=== PATIENT | male | born 1965 | race Two or more races ===

== ENCOUNTER 2017-05-15 20:02 | Inpatient (IN) | payer MEDICARE, MEDICAID ==
[~2017-05-15] VITALS: Ht 182.9 cm; Wt 76.7 kg
[2017-05-15] MEDS: VANCOMYCIN 1 G PREMIX 200 ML IV ONE (00:55)
[2017-05-15] MEDS ORDERED: ONDANSETRON HCL 4MG/2ML VIAL IV STA (22:49)
[2017-05-15] MEDS ORDERED: MORPHINE SULFATE 4 MG/ML CPJ (NOT FOR IM USE) IV STA (22:49)
[2017-05-15] MEDS ORDERED: SODIUM CHLORIDE 0.9% 1,000 ML IV ONE (22:49)
[2017-05-15] MEDS ORDERED: CEFTRIAXONE 2 G PREMIX 50 ML IV ONE (23:00)
[2017-05-15] MEDS ORDERED: DEXAMETHASONE 10 MG in SODIUM CHLORIDE 0.9% 50 ML IV NR (23:00)
[2017-05-15 23:43] LABS: BASOPHILS % 0.1 % (0.0-2.0); HEMATOCRIT. 45.7 % (42.0-52.0); HEMOGLOBIN. 14.5 g/dL (14.0-18.0); LYMPHOCYTES % 13.4 % (20.0-50.0); MEAN CORPUSCULAR HEMOGLOBIN 27.1 pg (28.0-32.0); MEAN CORPUSCULAR VOLUME 85.5 fL (80.0-94.0); MEAN PLATELET VOLUME 8.8 fl (7.4-10.4); MONOCYTES % 3.7 % (2.0-8.0); NEUTROPHILS % 82.8 % (40.0-76.0); PLATELET 236 x1000/uL (130-400); RED BLOOD CELL COUNT 5.34 mill/uL (4.7-6.1); RED CELL DISTRIBUTION WIDTH 19.6 % (11.6-14.6)
[2017-05-15] MEDS ORDERED: DIPHENHYDRAMINE 50MG/ML VIAL IV ONE (23:45)
[2017-05-15 23:48] LABS: CHLORIDE 109 mEq/L (98-107)
[2017-05-15 23:49] LABS: INR 1.1; PROTHROMBIN TIME 11.1 sec (9.4-11.6)
[2017-05-15 23:59] LABS: CARBON DIOXIDE 23 mEq/L (21-32)
[2017-05-16 00:12] LABS: CLARITY URINE CLEAR (CLEAR); COLOR URINE YELLOW (YELLOW); GLUCOSE URINE NEGATIVE (NEGATIVE); KETONES URINE NEGATIVE (NEGATIVE); LEUKOCYTE ESTERASE URINE NEGATIVE (NEGATIVE); NITRITE URINE NEGATIVE (NEGATIVE); OCCULT BLOOD URINE NEGATIVE (NEGATIVE); PROTEIN URINE NEGATIVE (NEGATIVE); SPECIFIC GRAVITY URINE 1.022 (1.005-1.030); UROBILINOGEN URINE 0.2 E.U./dL (0.2-1.0)
[2017-05-16] MEDS: VANCOMYCIN 1 G PREMIX 200 ML IV ONE (00:55)
[2017-05-16] MEDS ORDERED: SODIUM CHLORIDE 0.9% 1,000 ML IV SCH (01:13)
[2017-05-16] MEDS ORDERED: MORPHINE SULFATE 4 MG/ML CPJ (NOT FOR IM USE) IV ONE (02:45)
[2017-05-16] MEDS ORDERED: DIPHENHYDRAMINE 50MG/ML VIAL IV ONE (02:45)
[2017-05-16] MEDS ORDERED: NIFEDIPINE XL 30MG TAB PO ONE (04:15)
[2017-05-16 09:00] VITALS: BP 160/95
[2017-05-16 10:02] VITALS: BP 160/95
[2017-05-16] MEDS ORDERED: EMTR1TAB12 PO (10:09)
[2017-05-16] MEDS ORDERED: LORA2TAB2 PO (10:09)
[2017-05-16] MEDS ORDERED: DARU1TAB PO (10:09)
[2017-05-16] MEDS ORDERED: CLON0.1T PO (10:09)
[2017-05-16] MEDS ORDERED: LOV40 SQ (10:09)
[2017-05-16 12:00] VITALS: BP 136/88
[2017-05-16] MEDS ORDERED: ACETAMINOPHEN 325MG TABLET PO PRN (12:30)
[2017-05-16] MEDS ORDERED: CEFTRIAXONE 2 G PREMIX 50 ML IV SCH (12:30)
[2017-05-16] MEDS ORDERED: ONDANSETRON HCL 4MG/2ML VIAL IV PRN (12:30)
[2017-05-16] MEDS: HYDROMORPHONE HCL/PF 2MG/ML CPJ IV PRN ×3 (13:25→21:38)
[2017-05-16] MEDS: CLONIDINE 0.1MG TABLET PO SCH ×2 (13:34→20:45)
[2017-05-16] MEDS: AMLODIPINE 10MG TABLET PO SCH (13:35)
[2017-05-16] MEDS: CEFTRIAXONE 2 G in DEXTROSE 5% WATER 50 ML IV SCH ×2 (14:29→23:29)
[2017-05-16] MEDS: DIPHENHYDRAMINE 50MG/ML VIAL IV PRN ×3 (14:29→23:27)
[2017-05-16] MEDS: ENOXAPARIN 100MG/ML SYR SUBCUT SCH (14:37)
[2017-05-16 16:00] VITALS: BP 118/70
[2017-05-16] MEDS: PREZCOBIX PO SCH (17:33)
[2017-05-16] MEDS: DESCOVY PO SCH (17:33)
[2017-05-16] MEDS ORDERED: VANCOMYCIN 500 MG PREMIX 100 ML IV SCH (18:00)
[2017-05-16] MEDS: AMPICILLIN 2,000 MG in SODIUM CHLORIDE 0.9% 100 ML IV SCH (18:34)
[2017-05-16 20:10] VITALS: BP 109/69
[2017-05-17] VITALS: BP 125/83
[2017-05-17] MEDS: AMPICILLIN 2,000 MG in SODIUM CHLORIDE 0.9% 100 ML IV SCH ×5 (00:55→23:02)
[2017-05-17] MEDS: HYDROMORPHONE HCL/PF 2MG/ML CPJ IV PRN ×6 (00:55→20:45)
[2017-05-17 04:41] VITALS: BP 132/88
[2017-05-17] MEDS: DIPHENHYDRAMINE 50MG/ML VIAL IV PRN ×4 (06:26→23:02)
[2017-05-17 08:10] VITALS: BP 123/82
[2017-05-17 08:30] LABS: HEMATOCRIT. 42.3 % (42.0-52.0); HEMOGLOBIN. 13.4 g/dL (14.0-18.0); LYMPHOCYTES % 10.1 % (20.0-50.0); MEAN CORPUSCULAR HEMOGLOBIN 27.1 pg (28.0-32.0); MEAN CORPUSCULAR VOLUME 85.3 fL (80.0-94.0); MEAN PLATELET VOLUME 9.1 fl (7.4-10.4); NEUTROPHILS % 84.9 % (40.0-76.0); PLATELET 207 x1000/uL (130-400); RED BLOOD CELL COUNT 4.95 mill/uL (4.7-6.1); RED CELL DISTRIBUTION WIDTH 19.3 % (11.6-14.6)
[2017-05-17 08:49] LABS: CARBON DIOXIDE 23 mEq/L (21-32); CHLORIDE 105 mEq/L (98-107); HDL CHOLESTEROL 50 mg/dL (40-59); LDL CHOLESTEROL 144 mg/dL (5-100)
[2017-05-17] MEDS: AMLODIPINE 10MG TABLET PO SCH (09:45)
[2017-05-17] MEDS: CEFTRIAXONE 2 G in DEXTROSE 5% WATER 50 ML IV SCH ×2 (09:45→20:26)
[2017-05-17] MEDS: CLONIDINE 0.1MG TABLET PO SCH ×2 (09:47→20:26)
[2017-05-17] MEDS: ASPIRIN 81MG EC TABLET PO SCH (09:47)
[2017-05-17] MEDS: DESCOVY PO SCH (09:48)
[2017-05-17] MEDS: PREZCOBIX PO SCH (09:49)
[2017-05-17] MEDS: ENOXAPARIN 100MG/ML SYR SUBCUT SCH (12:28)
[2017-05-17] MEDS: VANCOMYCIN 1 G PREMIX 200 ML IV SCH (14:03)
[2017-05-17 16:00] VITALS: BP 119/78
[2017-05-17 20:00] VITALS: BP 128/84
[2017-05-17] MEDS: ALPRAZOLAM 0.5 MG TABLET PO PRN (20:25)
[2017-05-17] MEDS: ACYCLOVIR INJ 750 MG in DEXT 5% WATER 100 ML IV SCH (20:45)
[2017-05-17 22:21] LABS: PLATELET ESTIMATE NORMAL
[2017-05-18 00:23] VITALS: BP 113/71
[2017-05-18] MEDS: HYDROMORPHONE HCL/PF 2MG/ML CPJ IV PRN ×7 (01:04→21:18)
[2017-05-18 04:00] VITALS: BP 133/86
[2017-05-18] MEDS: ACYCLOVIR INJ 750 MG in DEXT 5% WATER 100 ML IV SCH ×3 (04:35→22:02)
[2017-05-18] MEDS: AMPICILLIN 2,000 MG in SODIUM CHLORIDE 0.9% 100 ML IV SCH ×3 (06:30→18:20)
[2017-05-18] MEDS: DIPHENHYDRAMINE 50MG/ML VIAL IV PRN ×3 (06:34→19:04)
[2017-05-18 08:25] VITALS: BP 108/68
[2017-05-18 08:35] LABS: HEMATOCRIT. 40.2 % (42.0-52.0); HEMOGLOBIN. 12.8 g/dL (14.0-18.0); LYMPHOCYTES % 17.1 % (20.0-50.0); MEAN CORPUSCULAR VOLUME 84.8 fL (80.0-94.0); MONOCYTES % 10.9 % (2.0-8.0); PLATELET 185 x1000/uL (130-400); RED BLOOD CELL COUNT 4.74 mill/uL (4.7-6.1); RED CELL DISTRIBUTION WIDTH 19.3 % (11.6-14.6)
[2017-05-18] MEDS: PREZCOBIX PO SCH (09:00)
[2017-05-18] MEDS: VANCOMYCIN 1 G PREMIX 200 ML IV SCH (09:14)
[2017-05-18] MEDS: ENOXAPARIN 100MG/ML SYR SUBCUT SCH (09:14)
[2017-05-18] MEDS: AMLODIPINE 10MG TABLET PO SCH (09:15)
[2017-05-18] MEDS: CLONIDINE 0.1MG TABLET PO SCH ×2 (09:16→21:16)
[2017-05-18] MEDS: ASPIRIN 81MG EC TABLET PO SCH (09:16)
[2017-05-18] MEDS: DESCOVY PO SCH (09:18)
[2017-05-18] MEDS: CEFTRIAXONE 2 G in DEXTROSE 5% WATER 50 ML IV SCH ×2 (10:23→21:16)
[2017-05-18 12:30] VITALS: BP 122/62
[2017-05-18 16:33] VITALS: BP 106/62
[2017-05-18 20:00] VITALS: BP 134/83
[2017-05-19] VITALS (8 sets, daily range): BP systolic 107–151; BP diastolic 49–89
[2017-05-19] MEDS: AMPICILLIN 2,000 MG in SODIUM CHLORIDE 0.9% 100 ML IV SCH ×4 (00:15→18:04)
[2017-05-19] MEDS: HYDROMORPHONE HCL/PF 2MG/ML CPJ IV PRN ×8 (00:17→21:09)
[2017-05-19] MEDS: DIPHENHYDRAMINE 50MG/ML VIAL IV PRN ×4 (01:10→19:08)
[2017-05-19] MEDS: ACYCLOVIR INJ 750 MG in DEXT 5% WATER 100 ML IV SCH ×3 (04:58→21:08)
[2017-05-19] MEDS: PREZCOBIX PO SCH (09:00)
[2017-05-19] MEDS: DESCOVY PO SCH (09:33)
[2017-05-19] MEDS: AMLODIPINE 10MG TABLET PO SCH (09:33)
[2017-05-19] MEDS: CLONIDINE 0.1MG TABLET PO SCH ×2 (09:34→21:08)
[2017-05-19] MEDS: ASPIRIN 81MG EC TABLET PO SCH (09:34)
[2017-05-19] MEDS: ENOXAPARIN 100MG/ML SYR SUBCUT SCH (09:35)
[2017-05-19] MEDS: CEFTRIAXONE 2 G in DEXTROSE 5% WATER 50 ML IV SCH ×2 (09:42→21:08)
[2017-05-19] MEDS: VANCOMYCIN 1 G PREMIX 200 ML IV SCH (09:56)
[2017-05-20] VITALS: BP 123/75
[2017-05-20] MEDS: AMPICILLIN 2,000 MG in SODIUM CHLORIDE 0.9% 100 ML IV SCH ×4 (00:18→18:32)
[2017-05-20] MEDS: HYDROMORPHONE HCL/PF 2MG/ML CPJ IV PRN ×8 (00:23→21:36)
[2017-05-20] MEDS: DIPHENHYDRAMINE 50MG/ML VIAL IV PRN ×4 (01:28→22:42)
[2017-05-20 04:00] VITALS: BP 133/78
[2017-05-20] MEDS: ACYCLOVIR INJ 750 MG in DEXT 5% WATER 100 ML IV SCH ×3 (06:06→21:41)
[2017-05-20] MEDS: VANCOMYCIN 1 G PREMIX 200 ML IV SCH (08:29)
[2017-05-20] MEDS: AMLODIPINE 10MG TABLET PO SCH (08:30)
[2017-05-20] MEDS: ASPIRIN 81MG EC TABLET PO SCH (08:31)
[2017-05-20] MEDS: CLONIDINE 0.1MG TABLET PO SCH ×2 (08:32→21:21)
[2017-05-20] MEDS: CEFTRIAXONE 2 G in DEXTROSE 5% WATER 50 ML IV SCH ×2 (08:32→21:21)
[2017-05-20] MEDS: ENOXAPARIN 100MG/ML SYR SUBCUT SCH (08:33)
[2017-05-20 08:46] VITALS: BP 125/84
[2017-05-20 12:00] VITALS: BP 118/78
[2017-05-20 15:30] VITALS: BP 125/85
[2017-05-20 19:07] VITALS: BP 126/85
[2017-05-21] MEDS: AMPICILLIN 2,000 MG in SODIUM CHLORIDE 0.9% 100 ML IV SCH ×4 (00:13→17:44)
[2017-05-21] MEDS: HYDROMORPHONE HCL/PF 2MG/ML CPJ IV PRN ×7 (00:14→21:54)
[2017-05-21 00:19] VITALS: BP 138/85
[2017-05-21] MEDS: VANCOMYCIN 750 MG PREMIX 150 ML IV SCH ×2 (03:34→21:54)
[2017-05-21] MEDS: ACYCLOVIR INJ 750 MG in DEXT 5% WATER 100 ML IV SCH ×3 (04:58→21:54)
[2017-05-21] MEDS: DIPHENHYDRAMINE 50MG/ML VIAL IV PRN ×2 (04:58→17:44)
[2017-05-21 05:06] VITALS: BP 132/84
[2017-05-21 08:00] VITALS: BP 142/97
[2017-05-21] MEDS: CEFTRIAXONE 2 G in DEXTROSE 5% WATER 50 ML IV SCH ×2 (09:46→23:15)
[2017-05-21] MEDS: ASPIRIN 81MG EC TABLET PO SCH (09:47)
[2017-05-21] MEDS: AMLODIPINE 10MG TABLET PO SCH (09:47)
[2017-05-21] MEDS: CLONIDINE 0.1MG TABLET PO SCH ×2 (09:47→21:00)
[2017-05-21] MEDS: ENOXAPARIN 100MG/ML SYR SUBCUT SCH (11:34)
[2017-05-21 12:00] VITALS: BP 169/98
[2017-05-21] MEDS: ALPRAZOLAM 0.5 MG TABLET PO PRN ×2 (14:31→23:14)
[2017-05-21] MEDS: DESCOVY PO SCH (14:31)
[2017-05-21] MEDS: PREZCOBIX PO SCH (14:32)
[2017-05-21 16:00] VITALS: BP 117/64
[2017-05-21 20:00] VITALS: BP 101/65
[2017-05-22] MEDS: AMPICILLIN 2,000 MG in SODIUM CHLORIDE 0.9% 100 ML IV SCH ×4 (00:30→18:38)
[2017-05-22] MEDS: DIPHENHYDRAMINE 50MG/ML VIAL IV PRN ×4 (00:30→21:13)
[2017-05-22 00:53] VITALS: BP 150/85
[2017-05-22] MEDS: HYDROMORPHONE HCL/PF 2MG/ML CPJ IV PRN ×7 (01:48→22:21)
[2017-05-22 04:00] VITALS: BP 120/84
[2017-05-22] MEDS: ACYCLOVIR INJ 750 MG in DEXT 5% WATER 100 ML IV SCH ×3 (04:30→21:12)
[2017-05-22 07:57] VITALS: BP 127/68
[2017-05-22 09:08] LABS: ABSOLUTE EOSINOPHILS 0.1 x10E3/uL (0.0-0.4); ABSOLUTE LYMPHOCYTES 2.3 x10E3/uL (0.7-3.1); ABSOLUTE MONOCYTES 1.2 x10E3/uL (0.1-0.9); ABSOLUTE NEUTROPHILS 4.7 x10E3/uL (1.4-7.0); BASOPHILS 0 % (Not Estab.); G6PD RBC 4.66 x10E6/uL (4.14-5.80); HEMOGLOBIN 12.5 g/dL (12.6-17.7); IMMATURE GRANULOCYTES 2 % (Not Estab.); IMMATURE GRANULOCYTES ABSOLUTE 0.2 x10E3/uL (0.0-0.1); LYMPHOCYTES 27 % (Not Estab.); MEAN CORPUSCULAR HEMOGLOBIN 26.9 pg (26.6-33.0); MEAN CORPUSCULAR HGB CONC. 32.1 g/dL (31.5-35.7); MEAN CORPUSCULAR VOLUME 84 fL (79-97); MONOCYTES 14 % (Not Estab.); NEUTROPHILS 56 % (Not Estab.); PLATELETS 178 x10E3/uL (150-379); RBC 4.65 x10E6/uL (4.14-5.80); RED CELL DISTRIBUTION WIDTH 18.6 % (12.3-15.4); WBC 8.5 x10E3/uL (3.4-10.8)
[2017-05-22] MEDS: ASPIRIN 81MG EC TABLET PO SCH (10:07)
[2017-05-22] MEDS: AMLODIPINE 10MG TABLET PO SCH (10:08)
[2017-05-22] MEDS: CLONIDINE 0.1MG TABLET PO SCH ×2 (10:08→21:00)
[2017-05-22] MEDS: ENOXAPARIN 100MG/ML SYR SUBCUT SCH (10:08)
[2017-05-22] MEDS: CEFTRIAXONE 2 G in DEXTROSE 5% WATER 50 ML IV SCH ×2 (10:08→21:12)
[2017-05-22] MEDS: PREZCOBIX PO SCH (10:09)
[2017-05-22] MEDS: DESCOVY PO SCH (10:09)
[2017-05-22 12:00] VITALS: BP 121/78
[2017-05-22 13:12] LABS: % CD 3 POS. LYMPHOCYTES 79.4 % (57.5-86.2); % CD 4 POS. LYMPHOCYTES 8.9 % (30.8-58.5); % CD 8 POS. LYMPH 68.5 % (12.0-35.5); ABSOLUTE CD 3 1826 /uL (622-2402); ABSOLUTE CD 4 HELPER 205 /uL (359-1519); ABSOLUTE CD 8 SUPPRESSOR 1576 /uL (109-897); CD4/CD8 RATIO 0.13 (0.92-3.72)
[2017-05-22] MEDS: VANCOMYCIN 750 MG PREMIX 150 ML IV SCH (14:06)
[2017-05-22 16:07] VITALS: BP 110/71
[2017-05-22 20:50] VITALS: BP 103/60
[2017-05-23 00:24] VITALS: BP 113/81
[2017-05-23] MEDS: AMPICILLIN 2,000 MG in SODIUM CHLORIDE 0.9% 100 ML IV SCH ×4 (00:27→17:08)
[2017-05-23] MEDS: HYDROMORPHONE HCL/PF 2MG/ML CPJ IV PRN ×8 (01:32→22:33)
[2017-05-23] MEDS: DIPHENHYDRAMINE 50MG/ML VIAL IV PRN ×5 (03:15→23:24)
[2017-05-23 04:00] VITALS: BP 132/84
[2017-05-23] MEDS: ACYCLOVIR INJ 750 MG in DEXT 5% WATER 100 ML IV SCH ×3 (04:34→21:49)
[2017-05-23 08:00] VITALS: BP 126/85
[2017-05-23] MEDS: CLONIDINE 0.1MG TABLET PO SCH ×2 (08:42→21:01)
[2017-05-23] MEDS: AMLODIPINE 10MG TABLET PO SCH (08:43)
[2017-05-23] MEDS: ENOXAPARIN 100MG/ML SYR SUBCUT SCH (08:47)
[2017-05-23] MEDS: ASPIRIN 81MG EC TABLET PO SCH (08:47)
[2017-05-23] MEDS: VANCOMYCIN 750 MG PREMIX 150 ML IV SCH (08:48)
[2017-05-23] MEDS: CEFTRIAXONE 2 G in DEXTROSE 5% WATER 50 ML IV SCH ×2 (08:48→20:12)
[2017-05-23] MEDS: PREZCOBIX PO SCH ×2 (08:49→09:00)
[2017-05-23] MEDS: DESCOVY PO SCH (09:00)
[2017-05-23 12:06] VITALS: BP 132/89
[2017-05-23 16:18] VITALS: BP 121/83
[2017-05-23 20:00] VITALS: BP 104/71
[2017-05-23] MEDS: VANCOMYCIN 1 G PREMIX 200 ML IV SCH (20:44)
[2017-05-23] MEDS: LORAZEPAM 0.5MG TABLET PO PRN (21:01)
[2017-05-24] VITALS (7 sets, daily range): BP systolic 122–146; BP diastolic 75–98
[2017-05-24] MEDS: AMPICILLIN 2,000 MG in SODIUM CHLORIDE 0.9% 100 ML IV SCH ×5 (00:47→23:46)
[2017-05-24] MEDS: HYDROMORPHONE HCL/PF 2MG/ML CPJ IV PRN ×8 (01:49→23:46)
[2017-05-24] MEDS: ACYCLOVIR INJ 750 MG in DEXT 5% WATER 100 ML IV SCH ×3 (04:58→21:45)
[2017-05-24] MEDS: DIPHENHYDRAMINE 50MG/ML VIAL IV PRN ×3 (06:03→21:46)
[2017-05-24 08:49] LABS: HEMOGLOBIN. 13.4 g/dL (14.0-18.0); MEAN CORPUSCULAR HEMOGLOBIN 27.4 pg (28.0-32.0); MEAN CORPUSCULAR VOLUME 85.8 fL (80.0-94.0); MEAN PLATELET VOLUME 8.6 fl (7.4-10.4); PLATELET 185 x1000/uL (130-400); RED CELL DISTRIBUTION WIDTH 19.2 % (11.6-14.6)
[2017-05-24] MEDS: CEFTRIAXONE 2 G in DEXTROSE 5% WATER 50 ML IV SCH ×2 (08:52→20:30)
[2017-05-24] MEDS: ENOXAPARIN 100MG/ML SYR SUBCUT SCH (08:53)
[2017-05-24] MEDS: AMLODIPINE 10MG TABLET PO SCH (08:53)
[2017-05-24] MEDS: DOCUSATE SODIUM 100MG CAPSULE PO PRN (08:53)
[2017-05-24] MEDS: PREZCOBIX PO SCH (08:53)
[2017-05-24] MEDS: CLONIDINE 0.1MG TABLET PO SCH ×2 (08:53→21:46)
[2017-05-24] MEDS: ASPIRIN 81MG EC TABLET PO SCH (08:53)
[2017-05-24] MEDS: DESCOVY PO SCH (08:54)
[2017-05-24 11:27] LABS: PLATELET ESTIMATE NORMAL
[2017-05-24] MEDS: VANCOMYCIN 1 G PREMIX 200 ML IV SCH (15:25)
[2017-05-25] VITALS: BP 123/71
[2017-05-25] MEDS: HYDROMORPHONE HCL/PF 2MG/ML CPJ IV PRN ×8 (01:45→23:55)
[2017-05-25 04:00] VITALS: BP 139/98
[2017-05-25] MEDS: AMPICILLIN 2,000 MG in SODIUM CHLORIDE 0.9% 100 ML IV SCH ×4 (05:39→23:56)
[2017-05-25] MEDS: ACYCLOVIR INJ 750 MG in DEXT 5% WATER 100 ML IV SCH ×3 (06:10→21:41)
[2017-05-25 08:02] VITALS: BP 114/77
[2017-05-25] MEDS: CEFTRIAXONE 2 G in DEXTROSE 5% WATER 50 ML IV SCH ×2 (09:20→20:20)
[2017-05-25] MEDS: ASPIRIN 81MG EC TABLET PO SCH (09:20)
[2017-05-25] MEDS: AMLODIPINE 10MG TABLET PO SCH (09:21)
[2017-05-25] MEDS: PREZCOBIX PO SCH (09:21)
[2017-05-25] MEDS: CLONIDINE 0.1MG TABLET PO SCH ×2 (09:21→21:41)
[2017-05-25] MEDS: DESCOVY PO SCH (09:22)
[2017-05-25] MEDS: ENOXAPARIN 100MG/ML SYR SUBCUT SCH (09:22)
[2017-05-25] MEDS: VANCOMYCIN 1 G PREMIX 200 ML IV SCH (10:30)
[2017-05-25] MEDS: DIPHENHYDRAMINE 50MG/ML VIAL IV PRN ×2 (10:31→21:41)
[2017-05-25 12:00] VITALS: BP 111/76
[2017-05-25 16:00] VITALS: BP 117/72
[2017-05-25 20:00] VITALS: BP 127/87
[2017-05-26] VITALS: BP 113/71
[2017-05-26] MEDS: LORAZEPAM 0.5MG TABLET PO PRN ×2 (02:01→17:31)
[2017-05-26 02:33] LABS: HEMATOCRIT. 40.9 % (42.0-52.0); MEAN CORPUSCULAR HEMOGLOBIN 27.2 pg (28.0-32.0); MEAN CORPUSCULAR VOLUME 85.3 fL (80.0-94.0); MEAN PLATELET VOLUME 8.5 fl (7.4-10.4); PLATELET 192 x1000/uL (130-400); RED BLOOD CELL COUNT 4.79 mill/uL (4.7-6.1); RED CELL DISTRIBUTION WIDTH 18.9 % (11.6-14.6)
[2017-05-26 02:46] LABS: VANCOMYCIN TROUGH 19.4 ug/mL (5.0-10.0)
[2017-05-26 02:54] LABS: ATYPICAL LYMPHOCYTES 1; PLATELET ESTIMATE NORMAL
[2017-05-26] MEDS: VANCOMYCIN 1 G PREMIX 200 ML IV SCH ×2 (02:54→22:59)
[2017-05-26] MEDS: HYDROMORPHONE HCL/PF 2MG/ML CPJ IV PRN ×6 (02:55→20:16)
[2017-05-26 04:00] VITALS: BP 106/67
[2017-05-26] MEDS: ACYCLOVIR INJ 750 MG in DEXT 5% WATER 100 ML IV SCH ×3 (04:58→22:20)
[2017-05-26] MEDS: AMPICILLIN 2,000 MG in SODIUM CHLORIDE 0.9% 100 ML IV SCH ×3 (08:00→20:16)
[2017-05-26] MEDS: DIPHENHYDRAMINE 50MG/ML VIAL IV PRN ×3 (08:07→21:46)
[2017-05-26] MEDS: CEFTRIAXONE 2 G in DEXTROSE 5% WATER 50 ML IV SCH ×2 (08:46→21:46)
[2017-05-26] MEDS: ASPIRIN 81MG EC TABLET PO SCH (08:47)
[2017-05-26] MEDS: AMLODIPINE 10MG TABLET PO SCH (08:47)
[2017-05-26] MEDS: CLONIDINE 0.1MG TABLET PO SCH ×2 (08:48→21:46)
[2017-05-26] MEDS: DOCUSATE SODIUM 100MG CAPSULE PO PRN (08:48)
[2017-05-26] MEDS: DESCOVY PO SCH (08:50)
[2017-05-26] MEDS: PREZCOBIX PO SCH (08:51)
[2017-05-26] MEDS: ENOXAPARIN 100MG/ML SYR SUBCUT SCH (08:55)
[2017-05-26 09:05] VITALS: BP 114/74
[2017-05-26 12:10] VITALS: BP 120/86
[2017-05-26 16:07] VITALS: BP 153/92
[2017-05-26] MEDS ORDERED: AMPICILLIN 2,000 MG in SODIUM CHLORIDE 0.9% 100 ML IV SCH (20:00)
[2017-05-26 20:25] VITALS: BP 116/85
[2017-05-27] MEDS: HYDROMORPHONE HCL/PF 2MG/ML CPJ IV PRN ×6 (00:10→21:55)
[2017-05-27 00:24] VITALS: BP 109/73
[2017-05-27] MEDS: AMPICILLIN 2,000 MG in SODIUM CHLORIDE 0.9% 100 ML IV SCH ×2 (02:42→08:07)
[2017-05-27 04:00] VITALS: BP 133/87
[2017-05-27] MEDS: ACYCLOVIR INJ 750 MG in DEXT 5% WATER 100 ML IV SCH ×3 (04:17→22:36)
[2017-05-27 06:29] LABS: INR 1.1; PARTIAL THROMBOPLASTIN TIME 28.4 sec (23.4-31.0); PROTHROMBIN TIME 10.9 sec (9.4-11.6)
[2017-05-27 08:01] VITALS: BP 132/89
[2017-05-27] MEDS: ASPIRIN 81MG EC TABLET PO SCH (08:21)
[2017-05-27] MEDS: CLONIDINE 0.1MG TABLET PO SCH ×2 (08:21→22:37)
[2017-05-27] MEDS: DESCOVY PO SCH (08:22)
[2017-05-27] MEDS: AMLODIPINE 10MG TABLET PO SCH (08:22)
[2017-05-27] MEDS: PREZCOBIX PO SCH (08:22)
[2017-05-27] MEDS: CEFTRIAXONE 2 G in DEXTROSE 5% WATER 50 ML IV SCH ×2 (09:55→21:55)
[2017-05-27] MEDS: DIPHENHYDRAMINE 50MG/ML VIAL IV PRN ×2 (09:55→20:04)
[2017-05-27] MEDS ORDERED: SODIUM CHLORIDE 0.9% 10ML VIAL ONE (11:00)
[2017-05-27] MEDS ORDERED: SIMETHICONE 40 MG/0.6 ML 30ML ONE ×2 (11:00→15:21)
[2017-05-27 11:45] VITALS: BP 135/92
[2017-05-27] MEDS: AMPICILLIN IV SCH ×2 (14:40→20:04)
[2017-05-27] MEDS: WATER IV SCH ×2 (14:40→20:04)
[2017-05-27] MEDS: DEXT 5% IV SCH ×2 (14:40→20:04)
[2017-05-27] MEDS ORDERED: FENTANYL CITRATE/PF 50MCG/ML 2ML VIAL ONE (15:21)
[2017-05-27] MEDS ORDERED: MIDAZOLAM HCL 5 MG/5 ML VIAL ONE (15:21)
[2017-05-27 16:00] VITALS: BP 143/92
[2017-05-27] MEDS ORDERED: MIDAZOLAM HCL 5 MG/5 ML VIAL IV PRN (16:29)
[2017-05-27] MEDS ORDERED: FENTANYL CITRATE/PF 50MCG/ML 2ML VIAL IV PRN (16:29)
[2017-05-27] MEDS: VANCOMYCIN 1 G PREMIX 200 ML IV SCH (17:50)
[2017-05-27 20:00] VITALS: BP_SYST 151; BP_DIAS 92; BP_DIAS 98
[2017-05-28] VITALS (7 sets, daily range): BP systolic 103–136; BP diastolic 58–87
[2017-05-28] MEDS: WATER IV SCH ×4 (01:53→21:15)
[2017-05-28] MEDS: DEXT 5% IV SCH ×4 (01:53→21:15)
[2017-05-28] MEDS: AMPICILLIN IV SCH ×4 (01:53→21:15)
[2017-05-28] MEDS: HYDROMORPHONE HCL/PF 2MG/ML CPJ IV PRN ×6 (01:56→22:15)
[2017-05-28] MEDS: ACYCLOVIR INJ 750 MG in DEXT 5% WATER 100 ML IV SCH ×3 (06:01→22:15)
[2017-05-28] MEDS: ENOXAPARIN 100MG/ML SYR SUBCUT SCH (08:33)
[2017-05-28] MEDS: DESCOVY PO SCH (08:33)
[2017-05-28] MEDS: PREZCOBIX PO SCH (08:33)
[2017-05-28] MEDS: ASPIRIN 81MG EC TABLET PO SCH (08:34)
[2017-05-28] MEDS: AMLODIPINE 10MG TABLET PO SCH (08:34)
[2017-05-28] MEDS: CLONIDINE 0.1MG TABLET PO SCH ×2 (08:34→21:00)
[2017-05-28] MEDS: DIPHENHYDRAMINE 50MG/ML VIAL IV PRN ×3 (08:45→21:15)
[2017-05-28] MEDS: CEFTRIAXONE 2 G in DEXTROSE 5% WATER 50 ML IV SCH ×2 (09:57→22:15)
[2017-05-28] MEDS: VANCOMYCIN 1 G PREMIX 200 ML IV SCH (10:49)
[2017-05-29] MEDS: WATER IV SCH ×4 (01:31→20:25)
[2017-05-29] MEDS: AMPICILLIN IV SCH ×4 (01:31→20:25)
[2017-05-29] MEDS: DEXT 5% IV SCH ×4 (01:31→20:25)
[2017-05-29] MEDS: HYDROMORPHONE HCL/PF 2MG/ML CPJ IV PRN ×4 (02:34→18:19)
[2017-05-29 04:00] VITALS: BP 122/82
[2017-05-29] MEDS: ACYCLOVIR INJ 750 MG in DEXT 5% WATER 100 ML IV SCH ×3 (04:46→20:35)
[2017-05-29] MEDS: VANCOMYCIN 1 G PREMIX 200 ML IV SCH ×2 (04:46→23:02)
[2017-05-29] MEDS: DIPHENHYDRAMINE 50MG/ML VIAL IV PRN ×3 (04:59→20:26)
[2017-05-29] MEDS: ASPIRIN 81MG EC TABLET PO SCH (08:20)
[2017-05-29] MEDS: CLONIDINE 0.1MG TABLET PO SCH ×2 (08:20→20:36)
[2017-05-29] MEDS: AMLODIPINE 10MG TABLET PO SCH (08:21)
[2017-05-29] MEDS: ENOXAPARIN 100MG/ML SYR SUBCUT SCH (08:21)
[2017-05-29] MEDS: DESCOVY PO SCH (08:22)
[2017-05-29] MEDS: PREZCOBIX PO SCH (08:22)
[2017-05-29 08:24] VITALS: BP 133/89
[2017-05-29 08:30] VITALS: BP 133/89
[2017-05-29] MEDS: CEFTRIAXONE 2 G in DEXTROSE 5% WATER 50 ML IV SCH ×2 (09:35→20:35)
[2017-05-29] MEDS ORDERED: HYDROCODONE/ACETAMINOPHEN 10/325MG TABLET PO PRN (10:00)
[2017-05-29 12:46] VITALS: BP 103/65
[2017-05-29 16:32] VITALS: BP 146/77
[2017-05-29 20:00] VITALS: BP 129/80
[2017-05-29] MEDS: ALPRAZOLAM 0.25 MG TABLET PO PRN (23:29)
[2017-05-30] MEDS: WATER IV SCH ×4 (02:08→20:47)
[2017-05-30] MEDS: DEXT 5% IV SCH ×4 (02:08→20:47)
[2017-05-30] MEDS: AMPICILLIN IV SCH ×4 (02:08→20:47)
[2017-05-30] MEDS: HYDROMORPHONE HCL/PF 2MG/ML CPJ IV PRN ×3 (02:20→17:26)
[2017-05-30 04:00] VITALS: BP 103/73
[2017-05-30] MEDS: ACYCLOVIR INJ 750 MG in DEXT 5% WATER 100 ML IV SCH ×3 (04:59→21:47)
[2017-05-30] MEDS: AMLODIPINE 10MG TABLET PO SCH (10:00)
[2017-05-30] MEDS: CLONIDINE 0.1MG TABLET PO SCH ×2 (10:02→20:45)
[2017-05-30] MEDS: ASPIRIN 81MG EC TABLET PO SCH (10:02)
[2017-05-30] MEDS: ENOXAPARIN 100MG/ML SYR SUBCUT SCH (10:03)
[2017-05-30] MEDS: DESCOVY PO SCH (10:04)
[2017-05-30] MEDS: PREZCOBIX PO SCH (10:04)
[2017-05-30] MEDS: CEFTRIAXONE 2 G in DEXTROSE 5% WATER 50 ML IV SCH ×2 (10:49→20:47)
[2017-05-30] MEDS: ALPRAZOLAM 0.25 MG TABLET PO PRN ×2 (11:03→20:45)
[2017-05-30 12:00] VITALS: BP 99/55
[2017-05-30 12:46] LABS: HEMATOCRIT 46.6 % (42.0-52.0); HEMOGLOBIN 14.4 g/dL (14.0-18.0)
[2017-05-30] MEDS: DIPHENHYDRAMINE 50MG/ML VIAL IV PRN ×2 (13:09→18:41)
[2017-05-30 15:29] VITALS: BP 106/74
[2017-05-30 20:00] VITALS: BP 103/69
[2017-05-31 00:11] VITALS: BP 109/77
[2017-05-31] MEDS: DIPHENHYDRAMINE 50MG/ML VIAL IV PRN ×2 (00:29→06:31)
[2017-05-31] MEDS: DEXT 5% IV SCH (01:36)
[2017-05-31] MEDS: AMPICILLIN IV SCH (01:36)
[2017-05-31] MEDS: WATER IV SCH (01:36)
[2017-05-31] MEDS: HYDROMORPHONE HCL/PF 2MG/ML CPJ IV PRN ×2 (01:37→09:15)
[2017-05-31] MEDS: ACYCLOVIR INJ 750 MG in DEXT 5% WATER 100 ML IV SCH (05:43)
[2017-05-31] MEDS: ALPRAZOLAM 0.25 MG TABLET PO PRN (06:31)
[2017-05-31 07:45] VITALS: BP 113/82
[2017-05-31 09:53] VITALS: BP 113/82
[2017-05-31] MEDS ORDERED: HEPARIN 100 UNITS/1 ML VIAL IVF NR (10:30)
== END 2017-05-31 11:20 | disposition home health service (06) | DRG 974 ==
LOC: ER 21:05 → 6WST 05-16 01:15 → EDBEDREQ 05-16 01:19 → EDBEDREQSVC 05-16 01:19 → ENRESERV 05-16 07:29
PROVIDERS: ADMIT Hospitalist; ATTEND Hospitalist
PROC: 0DB68ZX Excision of Stomach, Via Natural or Artificial Opening Endoscopic, Diagnostic (ICD-10-PCS; principal; 2017-05-27 16:00)
DX: B20 Human immunodeficiency virus [HIV] disease (principal); A41.9 Sepsis, unspecified organism; G03.9 Meningitis, unspecified; N17.9 Acute kidney failure, unspecified; C85.90 Non-Hodgkin lymphoma, unspecified, unspecified site; D68.59 Other primary thrombophilia; I16.0 Hypertensive urgency; N18.9 Chronic kidney disease, unspecified; F17.200 Nicotine dependence, unspecified, uncomplicated; F40.240 Claustrophobia; K29.60 Other gastritis without bleeding; K44.9 Diaphragmatic hernia without obstruction or gangrene; R13.10 Dysphagia, unspecified; I12.9 Hypertensive chronic kidney disease with stage 1 through stage 4 chronic kidney disease, or unspecified chronic kidney disease; Z96.653 Presence of artificial knee joint, bilateral; Z96.643 Presence of artificial hip joint, bilateral; Z80.0 Family history of malignant neoplasm of digestive organs; Z80.42 Family history of malignant neoplasm of prostate; Z86.61 Personal history of infections of the central nervous system; Z86.711 Personal history of pulmonary embolism; Z86.718 Personal history of other venous thrombosis and embolism; Z89.511 Acquired absence of right leg below knee; Z89.611 Acquired absence of right leg above knee; Z92.21 Personal history of antineoplastic chemotherapy; Z98.1 Arthrodesis status; Z88.8 Allergy status to other drugs, medicaments and biological substances; Z79.899 Other long term (current) drug therapy
CPT/HCPCS: 36415; 70450; 71010; 80048; 80053; 80061; 80202; 81003; 82955; 83605; 83615; 85014; 85018; 85025; 85041; 85379; 85610; 85730; 86359; 86360; 87040; 88305; 88312; 88313; 93005; 93970; 96361; 96365; 96367; 96375; 96376; 99152; 99153; 99285; A4216; J0133; J0290; J0696; J1100; J1170; J1200; J1642; J1650; J2250; J2270; J2405; J3010; J3370; J7030; J7040; J7050; J7060